=== PATIENT | female | born 1965 | race Caucasian/White ===

== ENCOUNTER 2019-08-24 08:51 | Emergency (ER) | payer OTHER ==
[~2019-08-24] VITALS: Ht 167.6 cm; Wt 63.5 kg
[2019-08-24 09:39] LABS: BASO % 0.2 % (0.0-1.0); EOS # 0.1 10*3/uL (0.0-0.4); EOS % 1.1 % (1.0-4.0); HEMATOCRIT 38.3 % (37.0-47.0); HEMOGLOBIN 12.8 g/dl (12.0-16.0); LYMPH # 2.2 10*3/uL (1.3-4.4); LYMPH % 34.3 % (27.0-41.0); MEAN CELL VOLUME 105.2 fl (81.0-99.0); MEAN CORPUSCULAR HGB 35.2 pg (27.0-31.0); MEAN CORPUSCULAR HGB CONC 33.4 g/dl (33.0-37.0); MONO # 0.5 10*3/uL (0.1-1.0); MONO % 8.1 % (3.0-9.0); NEUT # 3.6 10*3/uL (2.3-7.9); NEUT % 56.1 % (47.0-73.0); PLATELET COUNT AUTOMATED 213 10*3/uL (130-400); RED BLOOD COUNT 3.64 10*6/uL (4.10-5.10); RED CELL DISTRI WIDTH 15.2 % (0-14.5); WHITE BLOOD COUNT 6.4 10*3/uL (4.8-10.8)
[2019-08-24 09:57] LABS: ALBUMIN 3.2 gm/dl (3.1-4.5); ALKALINE PHOSPHATASE 96 U/L (45-117); BUN 9 mg/dl (7-24); CHLORIDE 110 mmol/L (98-107); CREATININE 0.77 mg/dL (0.55-1.02); POTASSIUM 3.7 mmol/L (3.5-5.1); SGOT/AST 13 IU/L (3-35); SGPT/ALT 16 U/L (12-78); SODIUM 140 mmol/L (136-145); TOTAL PROTEIN 7.6 gm/dL (6.4-8.2)
[2019-08-24] MEDS ORDERED: IBU800 MG PO (10:44)
[2019-08-24] MEDS ORDERED: NORCO 5-325 TA1 EACH PO (10:44)
[2019-08-24] MEDS ORDERED: AUGMENTIN 875-875 MG PO (10:44)
== END 2019-08-24 10:52 | disposition home or self-care (01) ==
LOC: ED 08:51
PROVIDERS: Nurse Practitioner Family
DX: S61.451A Open bite of right hand, initial encounter (principal); L03.113 Cellulitis of right upper limb; F17.200 Nicotine dependence, unspecified, uncomplicated; W54.0XXA Bitten by dog, initial encounter; Y93.89 Activity, other specified; Y92.89 Other specified places as the place of occurrence of the external cause; Y99.8 Other external cause status

== ENCOUNTER 2019-08-26 06:34 | Emergency (ER) | payer OTHER ==
[~2019-08-26] VITALS: Ht 170.1 cm; Wt 65.8 kg
[~2019-08-26 06:34] MED LIST: AUGMENTIN 875-875 MG PO; IBU800 MG PO; NORCO 5-325 TA1 EACH PO
== END 2019-08-26 08:45 | disposition short-term general hospital (02) ==
LOC: ED 06:34
DX: S61.451D Open bite of right hand, subsequent encounter (principal); L08.9 Local infection of the skin and subcutaneous tissue, unspecified; W54.0XXD Bitten by dog, subsequent encounter

== ENCOUNTER 2024-05-27 22:54 | Emergency (ER) | payer OTHER ==
[~2024-05-27] VITALS: Wt 68.0 kg
[2024-05-28] MEDS ORDERED: MELOXICAM15 MG PO (02:12)
== END 2024-05-28 02:18 | disposition home or self-care (01) ==
LOC: ED 22:54
DX: R07.81 Pleurodynia (principal)